=== PATIENT | female | born 1950 | race Caucasian/White ===

== ENCOUNTER 2023-10-14 09:36 | Emergency (ER) | payer MEDICARE ==
[~2023-10-14] VITALS: Ht 157.5 cm; Wt 69.8 kg
[2023-10-14 10:32] LABS: CLARITY,URINE TURBID (Clear); COLOR,URINE ORANGE (Yellow); UA COLLECTION TYPE NON-SPECIFIED
[2023-10-14 11:06] LABS: WBC,URINE TNTC /HPF (0-4)
[2023-10-14 11:07] LABS: SQUAMOUS EPITHELIAL CELL,UR MODERATE /LPF (FEW)
[2023-10-14 11:08] LABS: MUCUS STRANDS MODERATE /LPF (Neg); WBC CLUMPS,URINE MODERATE /HPF (NEGATIVE)
[2023-10-14 11:09] LABS: BACTERIA,URINE 2+ /HPF (Neg); TRANSITIONAL EPI CELLS,URINE FEW /HPF
[2023-10-14] MEDS ORDERED: CEFD300C3 PO (11:24)
[2023-10-14 12:15] VITALS: BP 147/87; PULSE 82; RESP 17; O2SAT 97
[2023-10-14 12:17] VITALS: TEMP 98.3
== END 2023-10-14 12:20 | disposition home or self-care (01) ==
LOC: ER 09:36
DX: N39.0 Urinary tract infection, site not specified (principal); Z88.8 Allergy status to other drugs, medicaments and biological substances; Z88.5 Allergy status to narcotic agent; Z91.040 Latex allergy status
CPT/HCPCS: 81001; 87077; 87088; 87186; 99283